=== PATIENT | female | born 1970 | race African-American/Black ===

== ENCOUNTER 2016-11-23 17:48 | Emergency (ER) | payer OTHER ==
[2016-11-23 17:57] VITALS: BP 158/90; PULSE 88; TEMP 98; BMI 29.2
--- NOTE | 2016-11-23 18:52 | PDOC ---
History of Present Illness <Brooke Phillips - Last Filed: 11/23/16 21:20> - History of Present Illness Initial Comments: 11/23/16 21:50 The patient is a 46 year old female, with a significant past medical history of , who presents to the emergency department with vaginal bleeding for a week. LMP: July 2016 She denies chest pain, shortness of breath, headache and dizziness. She denies fever, chills, nausea, vomit, diarrhea and constipation. She denies dysuria, frequency, urgency and hematuria. Allergies: NKDA Past surgical history: Tubal Ligation <Yumiko Terrazas - Last Filed: 11/23/16 21:51> - General Chief Complaint: Vaginal Bleeding Stated Complaint: VAGINAL BLEEDING Time Seen by Provider: 11/23/16 18:22 Past History - Past Medical History HTN: Yes - Surgical History Abdominal Surgery: Yes Cholecystectomy: Yes - Psycho/Social/Smoking Cessation Hx Suicidal Ideation: No Smoking History: Never smoked Have you smoked in the past 12 months: No If you are a former smoker, when did you quit?: 1993 Information on smoking cessation initiated: No <Brooke Phillips - Last Filed: 11/23/16 21:20> <Yumiko Terrazas - Last Filed: 11/23/16 21:51> - Past Medical History Allergies/Adverse Reactions: Allergies Allergy/AdvReac Type Severity Reaction Status Date / Time No Known Allergies Allergy Verified 11/23/16 17:57 Home Medications: Ambulatory Orders NK [No Known Home Medication] 11/23/16 *Physical Exam - Vital Signs Last Vital Signs Temp Pulse Resp BP Pulse Ox 98 F 88 18 158/90 100 11/23/16 17:49 11/23/16 17:49 11/23/16 17:49 11/23/16 17:49 11/23/16 17:49 <Brooke Phillips - Last Filed: 11/23/16 21:20> - Vital Signs Last Vital Signs Temp Pulse Resp BP Pulse Ox 98 F 88 18 158/90 100 11/23/16 17:49 11/23/16 17:49 11/23/16 17:49 11/23/16 17:49 11/23/16 17:49 <Yumiko Terrazas - Last Filed: 11/23/16 21:51> ED Treatment Course - LABORATORY CBC & Chemistry Diagram: 11/23/16 19:15 11/23/16 15:15 <Brooke Phillips - Last Filed: 11/23/16 21:20> - LABORATORY CBC & Chemistry Diagram: 11/23/16 19:15 11/23/16 15:15 - ADDITIONAL ORDERS Additional order review: Laboratory Results 11/23/16 11/23/16 19:15 15:15 Sodium 141 Potassium 3.7 Chloride 106 Carbon Dioxide 25 Anion Gap 10 BUN 11 Creatinine 0.5 L D Creat Clearance w eGFR > 60 Random Glucose 93 Calcium 9.0 Total Bilirubin 0.1 L D AST 17 ALT 19 Alkaline Phosphatase 75 Total Protein 7.1 Albumin 3.9 Urine Color Red Urine Appearance Cloudy Urine pH 6.0 Ur Specific [place] 1.023 Urine Protein 2+ H Urine Glucose (UA) 1+ H Urine Ketones Negative Urine Blood 3+ H Urine Nitrite Negative Urine Bilirubin Negative Urine Urobilinogen Negative Ur Leukocyte Esterase Trace H Urine RBC 8007 Urine WBC 3 Urine Mucus Rare 11/23/16 19:15 RBC 3.38 L D MCV 74.7 L MCHC 31.5 L RDW 15.0 MPV 9.9 <Yumiko Terrazas - Last Filed: 11/23/16 21:51> Medical Decision Making - Medical Decision Making 11/23/16 21:08 46 yo female states she's had irregular menses since Jul and recently had heavy vaginal bleeding -she is not dizzy and not tachycardic -she went to [facility] and they "took my blood" and said she needed a ultrasound -she states she has a history of anemia and takes iron pills. When I reviewed her old labs ,her 2014 hgb was 11 and her hct was above 30 so it has decreased since then PSH- pt said she has a tubal ligation when she had her last baby <Brooke Phillips - Last Filed: 11/23/16 21:20> *DC/Admit/Observation/Transfer <Brooke Phillips - Last Filed: 11/23/16 21:20> <Yumiko Terrazas - Last Filed: 11/23/16 21:51> Diagnosis at time of Disposition: History of metrorrhagia Anemia Qualifiers: Anemia type: iron deficiency Iron deficiency anemia type: chronic blood loss Qualified Code(s): D50.0 - Iron deficiency anemia secondary to blood loss ( chronic) - Discharge Dispostion Disposition: ELOPED - Referrals Referrals: Cara Atkinson [Primary Care Provider] - - Patient Instructions Printed Discharge Instructions: DI for Vaginal Bleeding, DI for Iron Deficiency Anemia-Adult Additional Instructions: it is important to see your environmental health manager as soon as possible return for worsening symptoms
[2016-11-23 19:42] LABS: MCH 23.5 pg (25.7-33.7); MCHC 31.5 g/dl (32.0-36.0); MEAN CELL VOLUME 74.7 fl (80-96); MEAN PLT VOLUME 9.9 fl (7.5-11.1); PLATELET COUNT 251 K/MM3 (134-434); WHITE BLOOD COUNT 7.3 K/mm3 (4.0-10.0)
[2016-11-23 19:43] LABS: URINE APPEARANCE CLOUDY; URINE BILIRUBIN NEGATIVE (NEGATIVE); URINE COLOR RED; URINE GLUCOSE (UA) 1+ (NEGATIVE); URINE KETONE NEGATIVE (NEGATIVE); URINE NITRITE NEGATIVE (NEGATIVE); URINE UROBILINOGEN NEGATIVE E.U./dl (0.2-1.0)
[2016-11-23 19:44] LABS: URINE BLOOD 3+ (NEGATIVE); URINE LEUK ESTERASE TRACE (NEGATIVE); URINE PROTEIN 2+ (NEGATIVE)
[2016-11-23 19:50] LABS: URINE MUCUS RARE; URINE RBC 8007 /hpf (0-3); URINE WBC 3 /hpf (3-5)
[2016-11-23 20:05] LABS: ALBUMIN 3.9 g/dl (3.4-5.0); ALK PHOS 75 U/L (45-117); ANION GAP 10 (8-16); BILIRUBIN,TOTAL 0.1 mg/dL (0.2-1.0); CO2 25 mmol/L (21-32); CREATININE 0.5 mg/dL (0.55-1.02); GLUCOSE,RANDOM 93 mg/dL (74-106); SGOT/AST 17 U/L (15-37); SGPT/ALT 19 U/L (12-78); TOT PROT 7.1 g/dl (6.4-8.2)
== END 2016-11-23 21:20 | disposition left against medical advice (07) ==
LOC: JER 17:48
DX: N92.1 Excessive and frequent menstruation with irregular cycle (principal); I10 Essential (primary) hypertension
CPT/HCPCS: 36415; 80053; 81003; 81015; 85027; 99283-25

== ENCOUNTER 2018-06-12 16:15 | Observation (INO) | payer OTHER ==
--- NOTE | 2018-06-12 17:00 | PDOC ---
Attending Attestation - HPI HPI: 06/12/18 17:06 The patient is a 47 year old female, with no significant past medical history, who presents to the emergency department with heavy vaginal bleeding since which became heavier on 06/06/18 and has been soaking 8 pads a day with blood per vagina since. She reports a similar episode about 1.5 years ago and had a normal endometrial biopsy. She denies vaginal pain or trauma. The patient denies chest pain, shortness of breath, headache and dizziness. The patient denies fever, chills, nausea, vomit, diarrhea and constipation. The patient denies dysuria, frequency, urgency and hematuria. Allergies: NKDA - Physicial Exam PE: 06/12/18 17:07 ROS: A complete review of 10 out of 10 review of systems is taken and is negative apart from what is previously mentioned below and in the HPI. Adult Physical Exam Vitals: Triage vital signs reviewed General Appearance: No acute distress, well nourished, well developed Head: Atraumatic Neck: Supple; No nuchal rigidity Chest Wall: Nontender Cardiac: Regular rate and rhythm, no murmurs, no rubs, no gallops Lungs: Clear to auscultation bilateral, good air movement bilaterally Abdomen: Soft, nondistended, normal bowel sounds, nontender to palpation Extremities: Full range of motion to all extremities, no cyanosis, clubbing, or edema Skin: Warm and dry, no rashes or lesions, no rash, no petechiae Neuro: AOX3; Cranial Nerves 2-12 grossly intact, Strength intact to all extremities, Sensation intact to all extremities, gait normal - Medical Decision Making 06/12/18 17:08 Documentation prepared by Yumiko Terrazas, acting as emergency medicine medical director for Balta Lewis MD. <Yumiko Terrazas - Last Filed: 06/12/18 17:57> - Resident Resident Name: Olaf Cisse - ED Attending Attestation I have performed the following: I have examined & evaluated the patient, The case was reviewed & discussed with the resident, I agree w/resident's findings & plan, Exceptions are as noted - Medical Decision Making 06/12/18 23:13 History of anemia secondary to heavy vaginal bleeding several months ago requiring blood transfusion was recommended that she started oral contraceptives but did not Return today with several day history of progressively increasing vaginal bleeding now 8 pads over the last several hours associated with dizziness lightheadedness Hemoglobin is 7.2 ultrasound demonstrates fibroid. Given symptomatic anemia we'll transfuse 2 units observe overnight patient can then follow up with [facility]. <Balta Lewis - Last Filed: 06/12/18 23:14>
[2018-06-12 17:35] LABS: HEMATOCRIT 22.9 % (32.4-45.2); HEMOGLOBIN 7.2 GM/dL (10.7-15.3); MCHC 31.2 g/dl (32.0-36.0); MEAN CELL VOLUME 67.2 fl (80-96); MEAN PLT VOLUME 9.6 fl (7.5-11.1); PLATELET COUNT 307 K/MM3 (134-434); RBC 3.41 M/mm3 (3.60-5.2); RDW 26.2 % (11.6-15.6); WHITE BLOOD COUNT 6.9 K/mm3 (4.0-10.0)
--- NOTE | 2018-06-12 17:39 | PDOC ---
History of Present Illness - General History Source: Patient Exam Limitations: No Limitations - History of Present Illness Initial Comments: 47 y/o female presenting to [facility] ER via private auto complaining of vaginal bleeding for the past 16 days. Bleeding started on the 27 of May; became heavier with very small clots on the 06 of June; acutely heavier today around 12:00p. States she was using approx. 8 pads per day and that she has used 6 since noon. Last normal menstrual period was March 2018. Did not bleed in April 2018. Prior to April, she was cycling regularly. Single episode of similar bleeding in Nov 2016; pt reports endometrial biopsy was performed and found to be normal. Has not follow up regularly with OBGYN since that time. Believes her last Pap smear was within the past 5 years and pt thinks it was normal. Endorses a history of pelvic inflammatory disease when she was 18. Is a G14 T10 L11. S/p BTL after her last in Nov 2011. Reports last intercourse April 2018 with male partner. Pt endorses a history of anemia. Required a blood transfusion in Nov 2011. Takes iron pills daily. Denies SOB, chest pain, palpitations, lightheadedness, or syncope. OBGYN: [id number]. Next appt scheduled June 15 at 9:15a. PCP: Dr. Dutta. Established care this past Thursday. <Olaf Cisse - Last Filed: 06/12/18 21:41> <Balta Lewis - Last Filed: 06/12/18 22:54> - General Chief Complaint: Vaginal Bleeding Stated Complaint: VAGINAL BLEEDING Time Seen by Provider: 06/12/18 16:22 Past History - Past Medical History COPD: No HTN: Yes Other medical history: PID (Age 18), Anemia - Surgical History Abdominal Surgery: Yes Cholecystectomy: Yes Other Surgical History: x4, loast 2011 BT2011 - Suicide/Smoking/Psychosocial Hx Smoking History: Never smoked Have you smoked in the past 12 months: No If you are a former smoker, when did you quit?: 1993 Information on smoking cessation initiated: No <Olaf Cisse - Last Filed: 06/12/18 21:41> <Balta Lewis - Last Filed: 06/12/18 22:54> - Past Medical History Allergies/Adverse Reactions: Allergies Allergy/AdvReac Type Severity Reaction Status Date / Time No Known Allergies Allergy Verified 06/12/18 16:16 Home Medications: Ambulatory Orders NK [No Known Home Medication] 11/23/16 Review of Systems - Review of Systems Able to Perform ROS?: Yes Is the patient limited Romanian proficient: No Constitutional: No: Chills, Diaphoresis, Fever, Weakness HEENTM: No: Difficulty Swallowing Respiratory: No: Cough, Shortness of Breath Cardiac (ROS): No: Chest Pain, Palpitations, Syncope ABD/GI: Yes: Constipated (Chronic and unchanged.), Abdominal cramping ( Menstrual cramping in abdomen and back. ). No: Blood Streaked Bowels, Diarrhea , Nausea, Rectal Bleeding, Vomiting : No: Burning, Dysuria, Discharge, Frequency, Flank Pain, Hematuria Integumentary: No: Rash Neurological: No: Dizziness Hematologic/Lymphatic: No: Easy Bleeding, Easy Bruising <Olaf Cisse - Last Filed: 06/12/18 21:41> *Physical Exam - Vital Signs Last Vital Signs Temp Pulse Resp BP Pulse Ox 98.3 F 86 16 150/74 98 06/12/18 16:16 06/12/18 16:16 06/12/18 16:16 06/12/18 16:16 06/12/18 16:16 - Physical Exam Comments: Constitutional: Well-developed, well-nourished female in no acute distress. Found sitting in the waiting room. Ambulated to exam room without assistance; no obvious discomfort. Alert and oriented x4. Answered all questions appropriately and completely. Speech was non-labored, non-pressured. HEENT: Normocephalic. No obvious external signs of trauma. Pale and moist conjunctiva. Sclerae white. Hearing grossly normal. No nasal discharge. Neck is supple, trachea is midline. No enlargement or nodularity of thyroid. No JVD. Cardiovascular: Regular rate and regular rhythm. No murmur, rubs, clicks, or gallops. Peripheral pulses: Radial pulses full. Respiratory: Equal chest rise and fall. Clear to auscultation bilaterally. No stridor, no wheezing, no rhonchi. Gastrointestinal: abdomen is soft, non-tender, non-distended. No suprapubic tenderness. Neuro: Alert and oriented. Moving all four extremities spontaneously. Gait normal. Psych: Affect: appropriate. Mood: concerned. Skin: Warm, dry, and intact. No bruising, rashes, or other lesions. No pretibial edema. : No CVA tenderness. <Olaf Cisse - Last Filed: 06/12/18 21:41> - Vital Signs Last Vital Signs Temp Pulse Resp BP Pulse Ox 98.3 F 83 18 122/68 100 06/12/18 16:16 06/12/18 22:19 06/12/18 22:19 06/12/18 22:19 06/12/18 22:19 <Balta Lewis - Last Filed: 06/12/18 22:54> ED Treatment Course - LABORATORY CBC & Chemistry Diagram: 06/12/18 17:25 06/12/18 17:25 - RADIOLOGY Radiology Studies Ordered: Category Date Time Status TRANSVAGINAL ULTRASOUND US [US] Stat Ultrasound 06/12/18 17:05 Ordered Radiograph Interpretation: Transvaginal Ultrasound: Jose Roberto Hayes MD wrote on Jun 12, 2018 at 07:05 PM: Referring Physician: BISHOP GALLOWAY Patient Name: JESSICA HDZ THIS IS A PRELIMINARY REPORT FROM [facility] DATE OF SERVICE: 2018-06-12 17:57:31 IMAGES: 45 EXAM: Transabdominal and transvaginal pelvic sonogram. Clinical indication: Vaginal bleeding ?16 days. There are no prior studies available for comparison. Technique: Transabdominal pelvic sonographic images were obtained. Then transvaginal pelvic sonographic images were obtained for increased anatomic detail and diagnostic interpretation. Findings: The uterus measures 10.8 x 8.5 x 7.5 cm in diameter. Within the anterior aspect of the uterus there is a subserosal small nodule which measures 1.8 x 1.6 x 1.5 cm in diameter and is consistent with a subserosal fibroid. The endometrial stripe measures 0.7 cm in thickness and is sonographically unremarkable. There is no free fluid within the abdomen or pelvis. The bilateral ovaries were not visualized from either a transabdominal or transvaginal approach. There is no sonographic abnormality identified within the adnexa. Impression: 1. Nonvisualization of the bilateral ovaries from a transabdominal and transvaginal approach. 2. Small anterior uterine subserosal fibroid. <Olaf Cisse - Last Filed: 06/12/18 21:41> - LABORATORY CBC & Chemistry Diagram: 06/12/18 17:25 06/12/18 17:25 - ADDITIONAL ORDERS Additional order review: Laboratory Results 06/12/18 06/12/18 06/12/18 19:35 17:25 17:25 Sodium 140 Potassium 4.5 Chloride 107 Carbon Dioxide 23 Anion Gap 10 BUN 10 Creatinine 0.5 L Creat Clearance w eGFR > 60 Random Glucose 89 Calcium 8.6 Urine Color Urine Appearance Urine pH Ur Specific [place] Urine Protein Urine Glucose (UA) Urine Ketones Urine Blood Urine Nitrite Urine Bilirubin Urine Urobilinogen Ur Leukocyte Esterase Urine WBC (Auto) Urine RBC (Auto) Urine HCG, Qual Blood Type O POSITIVE Antibody Screen Negative Crossmatch See Detail See Detail 06/12/18 17:25 Sodium Potassium Chloride Carbon Dioxide Anion Gap BUN Creatinine Creat Clearance w eGFR Random Glucose Calcium Urine Color Red Urine Appearance Turbid Urine pH 6.0 Ur Specific [place] 1.030 Urine Protein 3+ H Urine Glucose (UA) 1+ H Urine Ketones Negative Urine Blood 3+ H Urine Nitrite Negative Urine Bilirubin Negative Urine Urobilinogen Negative Ur Leukocyte Esterase Negative Urine WBC (Auto) None Urine RBC (Auto) None Urine HCG, Qual Negative Blood Type Antibody Screen Crossmatch 06/12/18 17:25 RBC 3.41 L MCV 67.2 L MCHC 31.2 L RDW 26.2 H MPV 9.6 <DebbieBalta - Last Filed: 06/12/18 22:54> Medical Decision Making - Medical Decision Making *Reviewed nursing notes and prior visit documentation. 47 y/o female complaining of vaginal bleeding for past 16 days, acutely worsening today around noon. Pt is not anticoagulated, does not take OCPs, and denies h/o coagulation disorder. Afebrile. Vitals unremarkable for tachycardia or hypotension. Physical exam revealed pale mucosal membranes. Suspect perimenopausal bleeding. Low suspicion for endometrial cancer as pt reports normal endometrial biopsy last year. Low suspicion for atrophic vaginitis given duration of bleeding. Low suspicion for ectopic as pt is s/p BTL. Will obtain CBC, BMP, UA, urine culture, UPreg, T/S, and transvaginal U/S. Transvaginal ultrasound revealed subserosal small nodule consistent with subserosal fibroid. Normal endometrial stripe. No free fluid within abdomen or pelvis. CBC revealed H/H of 7.2/22. Pt endorses generalized weakness and lightheadedness. Written consent obtained for blood transfusion. Repeat T/S and 1 unit PRBs ordered. Discussed laboratory and imaging results with pt. Expressed verbal understanding and agreement with plan to admit pt for observation. Answered all questions. 19:38 Microblog sent to [facility] Hospitalist Team for request for admission to observation. Telephone consultation with admitting team performed by my attending. Agree to admit pt to observation. Order placed. 06/12/18 21:06 Pt reassessed. Resting comfortable without acute complaint. States her vaginal bleeding has slowed significantly. <Olaf Cisse - Last Filed: 06/12/18 21:41> *DC/Admit/Observation/Transfer - Discharge Dispostion Decision to Admit order: Yes <Olaf Cisse - Last Filed: 06/12/18 21:41> - Discharge Dispostion Decision to Admit order: No <Balta Lewis - Last Filed: 06/12/18 22:54> Diagnosis at time of Disposition: Vaginal bleeding Anemia Qualifiers: Anemia type: unspecified type Qualified Code(s): D64.9 - Anemia, unspecified - Discharge Dispostion Condition at time of disposition: Good - Referrals Referrals: Saurav Dutta [Primary Care Provider] -
[2018-06-12 18:07] LABS: ANION GAP 10 MMOL/L (8-16); BLOOD UREA NITROGEN 10 mg/dL (7-18); CALCIUM 8.6 mg/dL (8.5-10.1); CHLORIDE 107 mmol/L (98-107); CO2 23 mmol/L (21-32); CREATININE 0.5 mg/dL (0.55-1.02); GLUCOSE,RANDOM 89 mg/dL (74-106); SODIUM 140 mmol/L (136-145)
[2018-06-12 18:22] LABS: URINE APPEARANCE TURBID; URINE BILIRUBIN NEGATIVE (<2.0 mg/dL); URINE COLOR RED; URINE GLUCOSE (UA) 1+ (NEGATIVE); URINE KETONE NEGATIVE (NEGATIVE); URINE LEUK ESTERASE NEGATIVE (NEGATIVE); URINE NITRITE NEGATIVE (NEGATIVE); URINE UROBILINOGEN NEGATIVE mg/dL (0.2-1.0)
[2018-06-12 18:30] LABS: POTASSIUM 4.5 mmol/L (3.5-5.1)
[2018-06-12 18:36] LABS: HCG,QUALITATIVE URINE Negative
[2018-06-12 18:37] LABS: URINE PROTEIN 3+ (NEGATIVE)
--- NOTE | 2018-06-12 20:58 | HP ---
CHIEF COMPLAINT: dizziness, vaginal bleeding PCP: Dr. Dutta HISTORY OF PRESENT ILLNESS: 47 yr with hx of vaginal bleeding requiring transfusions presented to Ed for continued vaginal bleeding from May 27, started to develop bleeding with clots on June 06. This morning she was experiencing dizziness everytime she stood up and bleeding was heavier than previous, she soaked through 8 super sized pads in several hours. had previous episode earlier this year, underwent endometrial biopsy at that time and was told everything was fine, recalls being told she had fibriods. and bleeding was likely due to pre-menopause. during both episodes she had missed one month of her cycle, currently she missed her March menses. Was seen by PCP's office on Thursday and was given an appointment with [facility] on June 15. she was offered control in the past for heavy menses but stopped taking the medication because she was concerned about cancer. ER course was notable for: (1) (2) (3) Recent Travel: none PAST MEDICAL HISTORY: Has 11 children, 4 c-sections, most recently 6 yrs ago PAST SURGICAL HISTORY: 4 c-sections Social History: Smoking: denies Alcohol:denies Drugs: denies Family History: 2 sisters with hx of fibroids and heavy menses. denies fmh of coagulopathy Allergies No Known Allergies Allergy (Verified 06/12/18 16:16) HOME MEDICATIONS: Home Medications Medication Instructions Recorded NK [No Known Home Medication] 11/23/16 REVIEW OF SYSTEMS CONSTITUTIONAL: Absent: fever, chills, diaphoresis, generalized weakness, malaise, loss of appetite, weight change HEENT: Absent: rhinorrhea, nasal congestion, throat pain, throat swelling, difficulty swallowing, mouth swelling, visual changes CARDIOVASCULAR: Present: dizziness, lightheadedness, Absent: chest pain, syncope, palpitations, irregular heart rate, peripheral edema RESPIRATORY: Absent: cough, shortness of breath, dyspnea with exertion, orthopnea, wheezing, stridor, hemoptysis GASTROINTESTINAL: Absent: abdominal pain, abdominal distension, nausea, vomiting, diarrhea, constipation, melena, hematochezia GENITOURINARY: Absent: dysuria, frequency, urgency, hesitancy, hematuria, flank pain, genital pain MUSCULOSKELETAL: Absent: myalgia, arthralgia, joint swelling, back pain, neck pain SKIN: Absent: rash, itching, pallor HEMATOLOGIC/IMMUNOLOGIC: Absent: easy bleeding, easy bruising, lymphadenopathy, frequent infections ENDOCRINE: Absent: unexplained weight gain, unexplained weight loss, heat intolerance, cold intolerance NEUROLOGIC: Absent: headache, focal weakness or paresthesias, dizziness, unsteady gait, seizure, mental status changes, bladder or bowel incontinence PSYCHIATRIC: Absent: anxiety, depression, suicidal or homicidal ideation, hallucinations. PHYSICAL EXAMINATION Vital Signs - 24 hr 06/12/18 16:16 Temperature 98.3 F Pulse Rate 86 Respiratory 16 Rate Blood Pressure 150/74 O2 Sat by Pulse 98 Oximetry (%) GENERAL: Awake, alert, and fully oriented, in no acute distress. HEAD: Normal with no signs of trauma. EYES: Pupils equal, round and reactive to light, extraocular movements intact, sclera anicteric, conjunctiva clear. No lid lag. EARS, NOSE, THROAT: Ears normal, nares patent, oropharynx clear without exudates. Moist mucous membranes. NECK: Normal range of motion, supple without lymphadenopathy, JVD, or masses. LUNGS: Breath sounds equal, clear to auscultation bilaterally. No wheezes, and no crackles. No accessory muscle use. HEART: Regular rate and rhythm, normal S1 and S2 +flow murmur ABDOMEN: Soft, nontender, not distended, normoactive bowel sounds, no guarding, no rebound, no masses. No hepatomegaly or splenomegaly. MUSCULOSKELETAL: Normal range of motion at all joints. No bony deformities or tenderness. No CVA tenderness. UPPER EXTREMITIES: 2+ radial pulses, warm, well-perfused. No cyanosis. No clubbing. No peripheral edema. LOWER EXTREMITIES: 2+ DP pulses, warm, well-perfused. No calf tenderness. No peripheral edema. NEUROLOGICAL: Cranial nerves II-XII intact. Normal speech. facial symmetry. 5/ 5 strength with extension and flexion on all muscle groups PSYCHIATRIC: Cooperative. Good eye contact. Appropriate mood and affect. SKIN: Warm, dry, normal turgor, no rashes or lesions noted, normal capillary refill. Laboratory Results - last 24 hr 06/12/18 06/12/18 06/12/18 17:25 17:25 17:25 WBC 6.9 RBC 3.41 L Hgb 7.2 L Hct 22.9 L MCV 67.2 L MCH 21.0 L D MCHC 31.2 L RDW 26.2 H Plt Count 307 D MPV 9.6 Sodium 140 Potassium 4.5 Chloride 107 Carbon Dioxide 23 Anion Gap 10 BUN 10 Creatinine 0.5 L Creat Clearance w eGFR > 60 Random Glucose 89 Calcium 8.6 Urine Color Red Urine Appearance Turbid Urine pH 6.0 Ur Specific [place] 1.030 Urine Protein 3+ H Urine Glucose (UA) 1+ H Urine Ketones Negative Urine Blood 3+ H Urine Nitrite Negative Urine Bilirubin Negative Urine Urobilinogen Negative Ur Leukocyte Esterase Negative Urine WBC (Auto) None Urine RBC (Auto) None Urine HCG, Qual Negative Blood Type Antibody Screen Crossmatch 06/12/18 06/12/18 17:25 19:35 WBC RBC Hgb Hct MCV MCH MCHC RDW Plt Count MPV Sodium Potassium Chloride Carbon Dioxide Anion Gap BUN Creatinine Creat Clearance w eGFR Random Glucose Calcium Urine Color Urine Appearance Urine pH Ur Specific [place] Urine Protein Urine Glucose (UA) Urine Ketones Urine Blood Urine Nitrite Urine Bilirubin Urine Urobilinogen Ur Leukocyte Esterase Urine WBC (Auto) Urine RBC (Auto) Urine HCG, Qual Blood Type O POSITIVE Antibody Screen Negative Crossmatch See Detail See Detail ASSESSMENT/PLAN: 47 yr old woman wit symptomatic microcytic anemia placed on obs for transfusion due to menorrhagia #Symptomatic anemia, microcytic, due to acute menorrhagia transfuse prbc's - 1 unit. has appt with petroleum supply specialist on u/s pending official read, prelim shows fibroid which is likely cause of heavy vaginal bleeding continue iron 325mg #DVT: avoid medical AC in bleeding pt, scd's and encourage ambulation #Diet: regular diet #Dispo: pending evalution by primary team in the AM Visit type - Emergency Visit Emergency Visit: Yes ED Registration Date: 06/12/18 Care time: The patient presented to the Emergency Department on the above date and was hospitalized for further evaluation of their emergent condition. - New Patient This patient is new to me today: Yes Date on this admission: 06/12/18 - Critical Care Critical Care patient: No Hospitalist Screening - Colonoscopy Questionnaire Colonoscopy Questionnaire: Colonoscopy Questionnaire - Patient: 50 - 75 years old and never had a screening colonoscopy: Unknown History of colon or rectal polyps, or CA: Unknown History of IBD, Crohn's disease or UC: Unknown History of abdominal radiation therapy as a child: Unknown - Relative: 1 with colon or rectal CA, or polyps at age 60 or younger: Unknown Colon or rectal CA diagnosed at age 45 or younger: Unknown Multiple relatives with colon or rectal CA: Unknown - Outcome: Screening Result: Negative Screen
--- NOTE | 2018-06-12 23:36 | PN ---
Teaching Attending Note Name of Resident: Vaibhav Flores ATTENDING PHYSICIAN STATEMENT I saw and evaluated the patient. Chart, data, imaging reviewed. I reviewed the resident's note and discussed the case with the resident. I agree with the resident's findings and plan as documented. SUBJECTIVE: 47 y/o female presented after complaining of vaginal bleeding for the past 16 days. Bleeding started on the 27 of May; became heavier with very small clots on the 06 of June and patient had to use up to 8 pads a day to control bleeding. She endorses fatigue. She has menstrual periods still, but irregular. Single episode of similar bleeding in Nov 2016; pt reports endometrial biopsy was performed and found to be normal", lost f/u wit OBGYN. 3 sisters in family with fibroids. OBJECTIVE: Last Vital Signs Temp Pulse Resp BP Pulse Ox 98.5 F 73 18 118/72 99 06/13/18 00:59 06/13/18 00:59 06/13/18 00:59 06/13/18 00:59 06/12/18 23:00 general - nad, aaox3 heent- pale sclera, moist oral mucosa neck -supple cv-s1+, S2+ RRR Chest cta abdomen -soft, nt , bs+ ext -no pedal edema Abnormal Lab Results 06/12/18 06/12/18 06/12/18 17:25 17:25 17:25 RBC 3.41 L Hgb 7.2 L Hct 22.9 L MCV 67.2 L MCH 21.0 L D MCHC 31.2 L RDW 26.2 H Creatinine 0.5 L Urine Protein 3+ H Urine Glucose (UA) 1+ H Urine Blood 3+ H Crossmatch 06/12/18 06/12/18 17:25 19:35 RBC Hgb Hct MCV MCH MCHC RDW Creatinine Urine Protein Urine Glucose (UA) Urine Blood Crossmatch See Detail See Detail Pelvic u/s found to have fibroid ASSESSMENT AND PLAN: #47yo woman with symptomatic microcytic anemia likely secondary to excessive vaginal bleeding induced by fibroid. -observation -type and screen, pt, ptt -transfuse 1 unit of prbc -repeat cbc -ferrous sulfate bid -avoid heparin sc -avoid antiplatelet drugs -obgyn consult -SCDs for DVT ppx
[2018-06-13 00:27] VITALS: BMI 29.6
[2018-06-13] MEDS ORDERED: FAMOTIDINE 20 MG/50 ML IVPB 20 MG/50 ML MG IVPB ONE ×3 (02:56→22:48)
--- NOTE | 2018-06-13 13:14 | PN ---
Progress Note, Physician Chief Complaint: AWAKE ALERT CHART REVIEWED AND NOTED COMFORTABLE DENIES HEADACHE OR DIZZINESS - Objective Vital Signs: Vital Signs Temperature 98.3 F 06/13/18 05:53 Pulse Rate 70 06/13/18 05:53 Respiratory Rate 18 06/13/18 05:53 Blood Pressure 123/71 06/13/18 05:53 O2 Sat by Pulse Oximetry (%) 99 06/12/18 23:00 Constitutional: Yes: Mild Distress Eyes: Yes: WNL HENT: Yes: WNL Neck: Yes: WNL Cardiovascular: Yes: WNL Respiratory: Yes: WNL Gastrointestinal: Yes: WNL Genitourinary: Yes: Vaginal Bleeding Musculoskeletal: Yes: WNL Extremities: Yes: WNL Edema: No Peripheral Pulses WNL: Yes Integumentary: Yes: WNL Wound/Incision: Yes: Clean/Dry Neurological: Yes: WNL ...Motor Strength: WNL Psychiatric: Yes: WNL Labs: CBC, BMP 06/12/18 17:25 06/12/18 17:25 Problem List - Problems (1) Anemia Code(s): D64.9 - ANEMIA, UNSPECIFIED Qualifiers: Anemia type: unspecified type Qualified Code(s): D64.9 - Anemia, unspecified (2) Vaginal bleeding Code(s): N93.9 - ABNORMAL UTERINE AND VAGINAL BLEEDING, UNSPECIFIED Assessment/Plan [facility] SUCROSE CHECK LABS SONO PELVIC
[2018-06-13] MEDS ORDERED: ACETAMINOPHEN 325 MG TABLET (FP) PO PRN (13:18)
[2018-06-13] MEDS ORDERED: IRON SUCROSE INJECTION 200 MG in SODIUM CHLORIDE 90 ML IVPB ONE (13:30)
[2018-06-13 14:12] LABS: HEMATOCRIT 26.1 % (32.4-45.2); HEMOGLOBIN 8.1 GM/dL (10.7-15.3); MCH 22.2 pg (25.7-33.7); MCHC 31.2 g/dl (32.0-36.0); MEAN CELL VOLUME 71.1 fl (80-96); MEAN PLT VOLUME 9.4 fl (7.5-11.1); PLATELET COUNT 270 K/MM3 (134-434); RBC 3.68 M/mm3 (3.60-5.2); RDW 29.2 % (11.6-15.6); WHITE BLOOD COUNT 6.7 K/mm3 (4.0-10.0)
--- NOTE | 2018-06-13 21:57 | EKG ---
Test Reason : Blood Pressure : / mmHG Vent. Rate : 083 BPM Atrial Rate : 083 BPM P-R Int : 180 ms QRS Dur : 082 ms QT Int : 372 ms P-R-T Axes : 068 039 038 degrees QTc Int : 437 ms NORMAL SINUS RHYTHM NORMAL ECG WHEN COMPARED WITH ECG OF 22-JAN-2014 11:51, QT HAS LENGTHENED Confirmed by ARUN ARANGO MD ([id number]) on 06/13/2018 9:57:25 PM Referred By: Confirmed By:ARUN ARANGO MD
--- NOTE | 2018-06-13 22:53 | RAPID ---
Physical Examination Vital Signs: Vital Signs Temperature 98.4 F 06/13/18 17:37 Pulse Rate 78 06/13/18 17:37 Respiratory Rate 18 06/13/18 17:37 Blood Pressure 130/71 06/13/18 17:37 O2 Sat by Pulse Oximetry (%) 99 06/13/18 18:50 Labs: CBC, BMP 06/13/18 13:35 06/12/18 17:25 Rapid Response - Rapid Response Assessment: RR called around 22:40 for pt complaining of chest pain. Arrived to find pt resting comfortably talking on phone. Pt complaining of pain in left epigastric area / left axilla. Exam: Pt awake and alert, no acute distress Heart regular rate and rythm Lungs CTA b/l Chest pain not reproducible Abdomen soft nontender Plan ECG reviewed, normal sinus rythm Troponins drawn, will follow Pt with recent gas pains yesterday alleviated by pepcid, pepcid 20 mg IV ordered
[2018-06-14 11:10] LABS: BASO % 0.9 % (0-2.0); EOS % 1.1 % (0-4.5); HEMATOCRIT 25.9 % (32.4-45.2); HEMOGLOBIN 7.9 GM/dL (10.7-15.3); LYMPH % 24.7 % (8-40); MCH 21.7 pg (25.7-33.7); MCHC 30.5 g/dl (32.0-36.0); MEAN CELL VOLUME 71.2 fl (80-96); MEAN PLT VOLUME 8.7 fl (7.5-11.1); NEUT % 61.3 % (42.8-82.8); PLATELET COUNT 271 K/MM3 (134-434); RBC 3.64 M/mm3 (3.60-5.2); WHITE BLOOD COUNT 6.8 K/mm3 (4.0-10.0)
--- NOTE | 2018-06-14 12:36 | DS ---
Physical Examination Vital Signs: Vital Signs Temperature 98.3 F 06/14/18 06:00 Pulse Rate 72 06/14/18 06:00 Respiratory Rate 20 06/14/18 06:00 Blood Pressure 117/76 06/14/18 06:00 O2 Sat by Pulse Oximetry (%) 99 06/13/18 18:50 Findings/Remarks: 47 yr with hx of vaginal bleeding requiring transfusions presented to [facility] for continued vaginal bleeding from May 27, started to develop bleeding with clots on June 06. This morning she was experiencing dizziness everytime she stood up and bleeding was heavier than previous, she soaked through 8 super sized pads in several hours. had previous episode earlier this year, underwent endometrial biopsy at that time and was told everything was fine, recalls being told she had fibriods. and bleeding was likely due to pre-menopause. during both episodes she had missed one month of her cycle, currently she missed her March menses. Was seen by PCP's office on Thursday and was given an appointment with [facility] on June 15. she was offered control in the past for heavy menses but stopped taking the medication because she was concerned about cancer. Constitutional: Yes: Well Nourished, No Distress, Calm Cardiovascular: Yes: Regular Rate and Rhythm Respiratory: Yes: Regular Gastrointestinal: Yes: Normal Bowel Sounds, Soft Neurological: Yes: Alert, Oriented Psychiatric: Yes: Alert, Oriented Labs: CBC, BMP 06/14/18 11:00 06/12/18 17:25 Discharge Summary Reason For Visit: ANEMIA,VAGINAL BLEEDING Current Active Problems Anemia (Acute) Vaginal bleeding (Acute) Condition: Stable - Instructions Diet, Activity, Other Instructions: Please follow up with [facility] outpatient Referrals: Saurav Dutta [Primary Care Provider] - Disposition: HOME - Home Medications Comprehensive Discharge Medication List: Ambulatory Orders NK [No Known Home Medication] 11/23/16
[2018-06-14 13:27] VITALS: BP 116/57; PULSE 80; TEMP 99
[2018-06-14 14:46] LABS: ANISOCYTOSIS 1+; MACROCYTOSIS 1+
--- NOTE | 2018-06-16 10:47 | EKG ---
Test Reason : Blood Pressure : / mmHG Vent. Rate : 070 BPM Atrial Rate : 070 BPM P-R Int : 186 ms QRS Dur : 086 ms QT Int : 382 ms P-R-T Axes : 064 036 037 degrees QTc Int : 412 ms NORMAL SINUS RHYTHM NORMAL ECG WHEN COMPARED WITH ECG OF 12-JUN-2018 21:23, NONSPECIFIC T WAVE ABNORMALITY NO LONGER EVIDENT IN ANTERIOR LEADS Confirmed by BENITO CAMARENA, RAFAEL ([id number]) on 06/16/2018 10:47:20 AM Referred By: Confirmed By:RAFAEL OLIVER MD
== END 2018-06-14 15:30 | disposition home or self-care (01) ==
LOC: JER 16:15 → J7W 19:59 → JER 23:11 → J7W 23:11 → UNDODISOB 06-13 16:55
PROVIDERS: ADMIT Internal Medicine; ATTEND Family Medicine
PROC: 30233N1 Transfusion of Nonautologous Red Blood Cells into Peripheral Vein, Percutaneous Approach (ICD-10-PCS; principal; 2018-06-12)
PROC: 3E033GC Introduction of Other Therapeutic Substance into Peripheral Vein, Percutaneous Approach (ICD-10-PCS; 2018-06-12)
DX: D64.9 Anemia, unspecified (principal); N93.9 Abnormal uterine and vaginal bleeding, unspecified
CPT/HCPCS: 36415; 36430; 76830-TC; 80048; 81003; 81015; 83540; 84484; 84703; 85025; 85027; 86850; 86900; 86901; 86922; 87086; 87186; 93005; 93010; 96365; 96367; 96368; 99284-25; G0378; J1756; P9038; P9058

== ENCOUNTER 2019-05-25 17:47 | Emergency (ER) | payer SELFPAY, OTHER | END 2019-05-25 22:45 | disposition home or self-care (01) | LOC: JER 17:47 ==

== ENCOUNTER 2021-08-05 21:41 | Emergency (ER) | payer OTHER ==
[2021-08-05 21:47] VITALS: BP 170/102; PULSE 98; TEMP 98.3; BMI 28.8
== END 2021-08-05 23:48 | disposition left against medical advice (07) ==
LOC: JER 21:41
DX: I10 Essential (primary) hypertension (principal)
CPT/HCPCS: 99281-25

== ENCOUNTER 2023-02-16 10:23 | Emergency (ER) | payer SELFPAY ==
[2023-02-16] MEDS ORDERED: ACETAMINOPHEN 1000 MG/100 ML BAG IVPB ONE (12:27)
[2023-02-16] MEDS ORDERED: DEXAMETHASONE SOD PHOSPHATE 10 MG/1 ML VIAL IVPUSH ONE (12:27)
[2023-02-16] MEDS ORDERED: ACETAMINOPHEN INJECTION 100 ML IVPB ONE ×2 (12:51→13:31)
[2023-02-16] MEDS ORDERED: DEXAMETHASONE SOD PHOSPHATE 10 MG/1 ML VIAL ONE (12:51)
[2023-02-16 12:56] LABS: BASO % 0.7 % (0-2.0); EOS % 1.4 % (0-4.5); HEMATOCRIT 35.7 % (32.4-45.2); HEMOGLOBIN 11.3 GM/dL (10.7-15.3); LYMPH % 33.9 % (8-40); MCH 22.8 pg (25.7-33.7); MCHC 31.6 g/dl (32.0-36.0); MEAN PLT VOLUME 9.4 fl (7.5-11.1); MONO % 11.1 % (3.8-10.2); NEUT % 52.9 % (42.8-82.8); PLATELET COUNT 270 10^3/uL (134-434); RBC 4.96 M/mm3 (3.60-5.2); RDW 14.1 % (11.6-15.6); WHITE BLOOD COUNT 7.1 K/mm3 (4.0-10.0)
[2023-02-16 13:15] LABS: POTASSIUM 5.3 mmol/L (3.5-5.1)
[2023-02-16 13:17] LABS: CALCIUM 9.4 mg/dL (8.5-10.1)
[2023-02-16 13:18] LABS: BLOOD UREA NITROGEN 13.2 mg/dL (7-18)
[2023-02-16 13:19] LABS: MAGNESIUM 2.4 mg/dL (1.8-2.4)
[2023-02-16 13:21] LABS: CREATININE 0.7 mg/dL (0.55-1.3)
[2023-02-16 13:22] LABS: BILIRUBIN,TOTAL 0.4 mg/dL (0.2-1); TOT PROT 10.1 g/dl (6.4-8.2)
[2023-02-16] MEDS ORDERED: KETOROLAC TROMETHAMINE 30 MG/1 ML VIAL IVPUSH ONE (14:05)
[2023-02-16] MEDS ORDERED: amLODIPine BESYLATE 5 MG TABLET (FP) PO ONE (14:06)
[2023-02-16] MEDS ORDERED: KETOROLAC TROMETHAMINE 30 MG/1 ML VIAL ONE (14:44)
[2023-02-16] MEDS ORDERED: amLODIPine BESYLATE 5 MG TABLET (FP) ONE (14:44)
[2023-02-16 15:13] VITALS: BP 177/113; PULSE 76; RESP 20; TEMP 98
== END 2023-02-16 15:40 | disposition home or self-care (01) ==
LOC: JER 10:23
PROC: 3E0333Z Introduction of Anti-inflammatory into Peripheral Vein, Percutaneous Approach (ICD-10-PCS; principal; 2023-02-16)
PROC: 3E033GC Introduction of Other Therapeutic Substance into Peripheral Vein, Percutaneous Approach (ICD-10-PCS; 2023-02-16)
DX: R59.0 Localized enlarged lymph nodes (principal); R07.0 Pain in throat; R51.9 Headache, unspecified; R50.9 Fever, unspecified; R09.81 Nasal congestion; I10 Essential (primary) hypertension; J02.9 Acute pharyngitis, unspecified; Z20.822 Contact with and (suspected) exposure to COVID-19
CPT/HCPCS: 0241U-QW; 36415; 70450-TC; 71046-TC-FY; 80053; 83735; 85025; 87070; 87651; 93005; 93010; 99285-25; J1100